=== PATIENT | female | born 1975 | race Caucasian/White ===

== ENCOUNTER 2018-03-18 09:53 | Emergency (ER) | payer OTHER ==
[~2018-03-18] VITALS: Ht 172.7 cm; Wt 156.1 kg
[~2018-03-18 09:53] MED LIST: CLONAZEPAM 0.50.5 M1 PO; EFFEXOR XR75 MG PO; HYDROCODON-ACE1 EAC7 PO; HYZAAR 50-12.51 EACH PO; SPIRONOLACTONE25 M1 PO; VISTARIL 25 MG25 M1 PO; XANAX 0.5 MG0.5 MG PO
[2018-03-18] MEDS ORDERED: KLOR-CON 1010 MEQ PO (10:08)
[2018-03-18 10:14] LABS: URINE BILIRUBIN NEGATIVE (Negative); URINE BLOOD 1+ (Negative); URINE CLARITY CLEAR; URINE COLOR YELLOW; URINE GLUCOSE-RANDOM NEGATIVE (Negative); URINE KETONES 1+ (Negative); URINE LEUKOCYTES-REFLEX 3+ (Negative); URINE NITRITE-REFLEX NEGATIVE (Negative); URINE PROTEIN 1+ (Negative)
[2018-03-18 10:26] LABS: CASTS None Seen /LPF (None Seen); CRYSTALS None Seen /LPF (None Seen); MUCUS 0-3 Light strn/LPF (None Seen); SQUAMOUS 4-10 Moderate /LPF (0-3); URINE RBC 0-2 Rare /HPF (0-2); URINE WBC-REFLEX 6-15 Few /HPF (0-5)
[2018-03-18 10:34] LABS: ABSOLUTE BASOPHILS 0.1 thou/uL (0.0-0.2); ABSOLUTE EOSINOPHILS 0.1 thou/uL (0.0-0.7); ABSOLUTE MONOCYTES 0.4 thou/uL (0.0-1.2); ABSOLUTE NEUTROPHILS 5.9 thou/uL (1.6-8.1); BASOPHILS 0.7 %; EOSINOPHILS 1.2 %; HEMATOCRIT 37.4 % (37.0-47.0); HEMOGLOBIN 12.8 gm/dL (12.0-15.0); LYMPHOCYTES 23.8 %; MCH 32.6 pg (26.0-34.0); MCHC 34.3 g/dL (28.0-37.0); MONOCYTES 4.4 %; MPV 8.9 fl. (7.2-11.1); NUCLEATED RBCS 0 /100WBC; PLATELET COUNT* 168 thou/uL (150-400); POLYS 69.9 %; RBC 3.94 mil/uL (4.20-5.00); RDW-CV 12.8 % (10.5-14.5); WBC 8.4 thou/uL (4.0-11.0)
[2018-03-18 10:37] LABS: CALCIUM 8.1 mg/dL (8.5-10.1); CREATININE 1.2 mg/dL (0.6-1.3)
[2018-03-18 10:41] LABS: ALBUMIN 2.8 g/dL (3.4-5.0); TOTAL BILIRUBIN 0.4 mg/dL (<0.1-1.0); TOTAL PROTEIN 6.9 g/dL (6.4-8.2)
[2018-03-18 10:49] LABS: POTASSIUM 2.8 mmol/L (3.5-5.1)
--- NOTE | 2018-03-18 15:02 | EKG ---
[place] [address] ELECTROCARDIOGRAM REPORT Name: SIMCHRIS Iniguez Room: [facility]#: [id number] Admission: 03/18/18 Attend Phys: Discharge: Date of : 71 Report #: [id number] THIS REPORT FOR: //name// [facility] ED Test Date: 2018-03-18 Test Time: 10:20:39 Pat Name: CHRIS MONTEMAYOR Department: Room: Gender: F Note Specialist: Annmarie COLUNGA : 1975 Requested By: Radha Boland Order Number: [id number] MD: Elijah Ji Measurements Intervals [place] Rate: 102 P: 53 MI: 155 QRS: 5 QRSD: 70 T: -11 QT: 361 QTc: 471 Interpretive Statements Sinus tachycardia Probable left atrial enlargement Low voltage, precordial leads Borderline T abnormalities, diffuse leads Compared to ECG 03/06/2014 07:01:56 Low QRS voltage now present T-wave abnormality now present Sinus rhythm no longer present Atrial premature complex(es) no longer present Electronically Signed On 03-18-2018 15:02:33 CDT by Elijah Ji [email or web address] <ELECTRONICALLY SIGNED> By: Elijah Ji MD, [facility] 03/18/18 1502 1020 1020 Elijah Ji MD, [facility] /EPI
[2018-03-18] MEDS ORDERED: HYDROCODON-ACE1 EAC7 PO (15:49)
[2018-03-18] MEDS ORDERED: CIPROFLOXACIN500 M1 PO (15:49)
[2018-03-18] MEDS ORDERED: ZOFRAN ODT4 MG PO (15:49)
[2018-03-18 16:03] VITALS: BP 111/54
== END 2018-03-18 16:04 | disposition home or self-care (01) ==
LOC: M.ERS 09:53
PROVIDERS: Personal Emergency Response Attendant
DX: E87.6 Hypokalemia (principal); N39.0 Urinary tract infection, site not specified; K76.89 Other specified diseases of liver; R11.2 Nausea with vomiting, unspecified; G43.909 Migraine, unspecified, not intractable, without status migrainosus; I10 Essential (primary) hypertension; F32.9 Major depressive disorder, single episode, unspecified; F41.9 Anxiety disorder, unspecified; F17.210 Nicotine dependence, cigarettes, uncomplicated; Z91.018 Allergy to other foods; Z90.49 Acquired absence of other specified parts of digestive tract

== ENCOUNTER 2018-03-25 14:06 | Inpatient (IN) | payer OTHER ==
[~2018-03-25] VITALS: Ht 177.8 cm; Wt 171.5 kg
--- NOTE | ~2018-03-25 | PROC ---
[address] [address] PROCEDURE REPORT Name: CHRIS MONTEMAYOR Room: [address] IN .R.#: [id number] Admission: 03/25/18 Attend Phys: Rachel Arauz MD Discharge: 04/03/18 Date of : 71 Report #: [id number] THIS REPORT FOR: //name// For GI report, please see the Provation report in Perceptive 7 content. By: 1346Medical Records Staff TEODORA /KELIN
[~2018-03-25 14:06] MED LIST changes: +CIPROFLOXACIN500 M1 PO; +KLOR-CON 1010 MEQ PO; +ZOFRAN ODT4 MG PO
[2018-03-25 14:18] VITALS: BP 116/67
[2018-03-25 14:40] LABS: URINE BILIRUBIN NEGATIVE (Negative); URINE BLOOD NEGATIVE (Negative); URINE CLARITY CLEAR; URINE COLOR YELLOW; URINE GLUCOSE-RANDOM NEGATIVE (Negative); URINE KETONES NEGATIVE (Negative); URINE LEUKOCYTES-REFLEX NEGATIVE (Negative); URINE NITRITE-REFLEX NEGATIVE (Negative); URINE PROTEIN TRACE (Negative); URINE UROBILINOGEN 0.2 E.U./dl (0.2-1.0)
[2018-03-25 14:41] LABS: HEMOGLOBIN 12.9 gm/dL (12.0-15.0); MCH 31.8 pg (26.0-34.0); MCHC 32.9 g/dL (28.0-37.0); MCV 96.5 fL (80.0-100.0); NUCLEATED RBCS 0 /100WBC; PLATELET COUNT* 135 thou/uL (150-400); RBC 4.05 mil/uL (4.20-5.00); RDW-CV 13.9 % (10.5-14.5); WBC 14.3 thou/uL (4.0-11.0)
[2018-03-25 14:46] LABS: CALCIUM 8.9 mg/dL (8.5-10.1); CREATININE 3.5 mg/dL (0.6-1.3)
[2018-03-25 14:50] LABS: ALBUMIN 2.4 g/dL (3.4-5.0); TOTAL BILIRUBIN 0.3 mg/dL (<0.1-1.0); TOTAL PROTEIN 6.5 g/dL (6.4-8.2)
[2018-03-25 15:04] LABS: ABSOLUTE LYMPHOCYTES 3.1 thou/uL (0.8-5.3); ABSOLUTE MONOCYTES 1.4 thou/uL (0.0-1.2); ABSOLUTE NEUTROPHILS 9.7 thou/uL (1.6-8.1)
[2018-03-25 15:05] LABS: PLATELET ESTIMATE ADEQUATE
[2018-03-25 17:19] VITALS: BP 100/49
[2018-03-25 17:20] VITALS: BP 136/57
--- NOTE | 2018-03-25 17:40 | EKG ---
[place] [address] ELECTROCARDIOGRAM REPORT Name: CHRIS MONTEMAYOR Room: [address] ADM IN [facility]#: [id number] Admission: 03/25/18 Attend Phys: Rachel Arauz MD Discharge: Date of : 71 Report #: [id number] THIS REPORT FOR: //name// [facility] ED Test Date: 2018-03-25 Test Time: 14:45:01 Pat Name: CHRIS MONTEMAYOR Department: Room: [facility] Gender: F Physician Chief Of Pathology: KWABENA : 1975 Requested By: Radha Boland Order Number: [id number] MD: Elijah Ji Measurements Intervals [place] Rate: 120 P: 46 FL: 163 QRS: 17 QRSD: 92 T: -43 QT: 278 QTc: 393 Interpretive Statements Sinus tachycardia Probable left atrial enlargement Low voltage, precordial leads Borderline abnrm T, anterolateral leads Compared to ECG 03/18/2018 10:20:39 no change Electronically Signed On 03-25-2018 17:40:43 CDT by Elijah Ji [email or web address] <ELECTRONICALLY SIGNED> By: Elijah Ji MD, FACC 03/25/18 1740 1445 1445 Elijah Ji MD, [facility] /EPI
[2018-03-25 19:35] VITALS: BP 133/68
[2018-03-26] VITALS: BP 81/50
[2018-03-26 02:07] LABS: HEPATITIS B SURFACE AG Negative (Negative)
[2018-03-26 04:00] VITALS: BP 105/50
[2018-03-26 08:00] VITALS: BP 91/60
[2018-03-26 08:16] LABS: HEMATOCRIT 38.5 % (37.0-47.0); HEMOGLOBIN 12.7 gm/dL (12.0-15.0); MCH 31.9 pg (26.0-34.0); MCV 96.9 fL (80.0-100.0); MPV 9.1 fl. (7.2-11.1); RBC 3.97 mil/uL (4.20-5.00); WBC 13.6 thou/uL (4.0-11.0)
[2018-03-26 09:33] LABS: ALBUMIN 2.4 g/dL (3.4-5.0); CALCIUM 8.8 mg/dL (8.5-10.1); POTASSIUM 3.9 mmol/L (3.5-5.1); TOTAL BILIRUBIN 0.3 mg/dL (<0.1-1.0); TOTAL PROTEIN 6.1 g/dL (6.4-8.2)
[2018-03-26 09:41] LABS: CREATININE 2.5 mg/dL (0.6-1.3)
[2018-03-26 10:01] LABS: MAGNESIUM 1.3 mg/dL (1.8-2.4); PHOSPHORUS* 4.8 mg/dL (2.5-4.9)
[2018-03-26 12:09] VITALS: BP 103/35
[2018-03-26 16:05] VITALS: BP 83/33
[2018-03-26 18:52] LABS: CALCIUM 7.7 mg/dL (8.5-10.1); CREATININE 3.5 mg/dL (0.6-1.3); POTASSIUM 3.6 mmol/L (3.5-5.1)
[2018-03-26 19:20] VITALS: BP 97/47
[2018-03-27] VITALS: BP 103/42
[2018-03-27 04:00] VITALS: BP 106/44
[2018-03-27 07:52] LABS: HEMATOCRIT 33.1 % (37.0-47.0); MCH 32.2 pg (26.0-34.0); MCHC 33.4 g/dL (28.0-37.0); MCV 96.6 fL (80.0-100.0); MPV 9.3 fl. (7.2-11.1); RBC 3.43 mil/uL (4.20-5.00); RDW-CV 14.1 % (10.5-14.5); WBC 12.9 thou/uL (4.0-11.0)
[2018-03-27 08:06] LABS: ALBUMIN 1.8 g/dL (3.4-5.0); CALCIUM 7.1 mg/dL (8.5-10.1); POTASSIUM 3.5 mmol/L (3.5-5.1); TOTAL BILIRUBIN 0.3 mg/dL (<0.1-1.0)
[2018-03-27 08:15] VITALS: BP 98/39
[2018-03-27 13:22] LABS: CALCIUM 7.2 mg/dL (8.5-10.1); CREATININE 2.6 mg/dL (0.6-1.3)
[2018-03-27 13:23] LABS: POTASSIUM 5.3 mmol/L (3.5-5.1)
[2018-03-27 15:52] VITALS: BP 97/52
[2018-03-27 19:30] VITALS: BP 96/43
[2018-03-28] VITALS: BP 93/48
[2018-03-28 04:00] VITALS: BP 90/35
[2018-03-28 06:09] LABS: HEMATOCRIT 34.2 % (37.0-47.0); HEMOGLOBIN 11.4 gm/dL (12.0-15.0); MCH 32.4 pg (26.0-34.0); MCHC 33.4 g/dL (28.0-37.0); MCV 97.2 fL (80.0-100.0); MPV 9.9 fl. (7.2-11.1); RBC 3.52 mil/uL (4.20-5.00); RDW-CV 14.3 % (10.5-14.5); WBC 13.9 thou/uL (4.0-11.0)
[2018-03-28 06:12] LABS: CALCIUM 7.2 mg/dL (8.5-10.1); CREATININE 2.3 mg/dL (0.6-1.3)
[2018-03-28 06:21] LABS: POTASSIUM 3.8 mmol/L (3.5-5.1)
[2018-03-28 08:09] VITALS: BP 123/52
--- NOTE | 2018-03-28 11:11 | CON ---
[address] [address] CONSULTATION Name: SIMCHRIS S Room: [address] IN .R.#: [id number] Admission: 03/25/18 Attend Phys: Rachel Arauz MD Discharge: Date of : 71 Report #: [id number] THIS REPORT FOR: //name// CC: Rachel Arauz Physician staff DEV MANJARREZ DATE OF SERVICE: 03/26/2018 CONSULTING PHYSICIAN: Dr. Arauz. REASON FOR CONSULTATION: Acute kidney injury. HISTORY OF PRESENT ILLNESS: A 42-year-old female admitted with diarrhea, which has been going on for 3 weeks, some nausea and vomiting. No regular NSAID use. No new medications except that she started taking diuretics about 3 weeks ago. She has no known history of kidney disease and she has received intravenous fluid resuscitation. She has relatively low blood pressures as well. She currently has no complaints. REVIEW OF SYSTEMS: Constitutional, psych, heme, eyes, ENT, respiratory, cardiac, GI, , and endocrine, all negative except as documented above. PAST MEDICAL HISTORY: Hypertension, anxiety, depression, history of laparoscopic cholecystectomy. SOCIAL HISTORY: Positive for tobacco. FAMILY HISTORY: Not pertinent for 42-year-old female. CURRENT MEDICATIONS: Reviewed. PHYSICAL EXAMINATION: VITAL SIGNS: Blood pressure 103/35, pulse 92, temperature 38.3, respirations 17. GENERAL: No acute distress. EYES: Extraocular movements intact. EARS: Externally normal. CARDIOVASCULAR: Regular rate. LUNGS: No crackles. ABDOMEN: Soft. LYMPHATICS: No substantial peripheral pitting edema. PSYCHIATRIC: Awake, alert. LABORATORY DATA: White cell count 13.6, hemoglobin 12.7, platelets 111. Sodium 134, potassium 3.9, chloride 102, bicarbonate 21, BUN 47, creatinine 2.5, [place] [address] CONSULTATION Name: CHRIS MONTEMAYOR Room: [address]#: [id number] Admission: 03/25/18 Attend Phys: Rachel Arauz MD Discharge: Date of : 71 Report #: [id number] glucose 94, calcium 8.8, phosphorus 4.8, magnesium 1.3. ASSESSMENT: 1. Acute kidney injury. Admission creatinine of 3.5. On 03/18, creatinine was 1.2. This is in the setting of diarrhea with nausea, vomiting, newly started thiazide diuretic about 3 weeks ago, and hypertension while also on an ARB and Aldactone. Urinalysis was okay. CT scan did not reveal any hydronephrosis. 2. Hypomagnesemia in the setting of diarrhea. 3. Hypoalbuminemia with an albumin of 2.4. 4. Left 3 mm and right 4 mm bilateral nonobstructing kidney stones. PLAN: Renal function is improving with hydration. Defer management of diarrhea to primary service. We would avoid diuretics in the future unless absolutely needed. Continue with present management. If creatinine does not return to baseline, the patient can follow up in Outpatient Renal Clinic. Otherwise can follow up with primary physician. With regard to the hypomagnesemia, that has been replaced. Thank you for requesting my opinion in the care and management of this patient. I will sign off. Please call with any questions. <ELECTRONICALLY SIGNED> By: Ruddy Jenkins MD 03/28/18 1111 1654 0314Abianish Jenkins MD /nt
[2018-03-28 12:09] VITALS: BP 126/54
[2018-03-28 20:00] VITALS: BP 100/47
[2018-03-29 07:31] LABS: HEMATOCRIT 34.4 % (37.0-47.0); HEMOGLOBIN 11.6 gm/dL (12.0-15.0); MCHC 33.6 g/dL (28.0-37.0); MCV 95.3 fL (80.0-100.0); MPV 9.9 fl. (7.2-11.1); RBC 3.61 mil/uL (4.20-5.00); RDW-CV 14.3 % (10.5-14.5); WBC 15.6 thou/uL (4.0-11.0)
[2018-03-29 07:36] LABS: CALCIUM 6.5 mg/dL (8.5-10.1); MAGNESIUM 1.6 mg/dL (1.8-2.4); POTASSIUM 3.5 mmol/L (3.5-5.1)
[2018-03-29 07:37] LABS: CREATININE 1.2 mg/dL (0.6-1.3)
[2018-03-29 07:45] VITALS: BP 118/66
[2018-03-29 11:10] LABS: B.burgdorf.IgG Negative (()); B.burgdorf.IgM Positive (())
[2018-03-29 12:21] LABS: URINE BILIRUBIN NEGATIVE (Negative); URINE BLOOD 1+ (Negative); URINE CLARITY CLEAR; URINE COLOR YELLOW; URINE GLUCOSE-RANDOM NEGATIVE (Negative); URINE KETONES NEGATIVE (Negative); URINE LEUKOCYTES-REFLEX NEGATIVE (Negative); URINE NITRITE-REFLEX NEGATIVE (Negative); URINE PROTEIN 1+ (Negative); URINE SPECIFIC GRAVITY 1.015 (1.005-1.030); URINE UROBILINOGEN 0.2 E.U./dl (0.2-1.0)
[2018-03-29 20:20] VITALS: BP 105/62
[2018-03-30 03:53] VITALS: BP 110/58
[2018-03-30 04:20] LABS: HEMATOCRIT 33.6 % (37.0-47.0); HEMOGLOBIN 11.3 gm/dL (12.0-15.0); MCH 32.2 pg (26.0-34.0); MCHC 33.7 g/dL (28.0-37.0); MCV 95.8 fL (80.0-100.0); MPV 9.5 fl. (7.2-11.1); RBC 3.51 mil/uL (4.20-5.00); RDW-CV 14.6 % (10.5-14.5); WBC 18.7 thou/uL (4.0-11.0)
[2018-03-30 04:34] LABS: CALCIUM 6.5 mg/dL (8.5-10.1); MAGNESIUM 1.5 mg/dL (1.8-2.4); POTASSIUM 3.5 mmol/L (3.5-5.1)
[2018-03-30 07:40] VITALS: BP 102/58
[2018-03-30 08:26] LABS: ALBUMIN 1.7 g/dL (3.4-5.0); DIRECT BILIRUBIN 0.1 mg/dL (<0.1-0.3); TOTAL BILIRUBIN 0.3 mg/dL (<0.1-1.0); TOTAL PROTEIN 4.7 g/dL (6.4-8.2)
[2018-03-30 15:05] VITALS: BP 109/65
[2018-03-30 21:30] VITALS: BP 115/61
[2018-03-31 04:24] LABS: HEMATOCRIT 32.8 % (37.0-47.0); HEMOGLOBIN 10.8 gm/dL (12.0-15.0); MCH 31.9 pg (26.0-34.0); MCHC 33.1 g/dL (28.0-37.0); MCV 96.6 fL (80.0-100.0); MPV 9.2 fl. (7.2-11.1); NUCLEATED RBCS 0 /100WBC; PLATELET COUNT* 91 thou/uL (150-400); RBC 3.39 mil/uL (4.20-5.00); RDW-CV 14.8 % (10.5-14.5); WBC 19.7 thou/uL (4.0-11.0)
[2018-03-31 04:44] LABS: ALBUMIN 1.6 g/dL (3.4-5.0); CALCIUM 6.6 mg/dL (8.5-10.1); CREATININE 0.8 mg/dL (0.6-1.3); MAGNESIUM 1.7 mg/dL (1.8-2.4); POTASSIUM 3.9 mmol/L (3.5-5.1); TOTAL BILIRUBIN 0.3 mg/dL (<0.1-1.0); TOTAL PROTEIN 4.7 g/dL (6.4-8.2)
[2018-03-31 08:43] LABS: ABSOLUTE EOSINOPHILS 0.4 thou/uL (0.0-0.7); ABSOLUTE LYMPHOCYTES 7.9 thou/uL (0.8-5.3); ABSOLUTE NEUTROPHILS 10.4 thou/uL (1.6-8.1); ATYPICAL LYMPHS 2 %; PLATELET ESTIMATE DECREASED
[2018-03-31 08:44] LABS: ANISOCYTOSIS 1+; POIKILOCYTOSIS 1+
[2018-03-31 09:55] VITALS: BP 150/98
--- NOTE | 2018-03-31 11:35 | CON ---
[address] [address] CONSULTATION Name: SIMCHRIS S Room: [address] IN .R.#: [id number] Admission: 03/25/18 Attend Phys: Rachel Arauz MD Discharge: Date of : 71 Report #: [id number] THIS REPORT FOR: //name// CC: Rachel Arauz Physician staff DEV MANJARREZ DATE OF SERVICE: 03/30/2018 INFECTIOUS DISEASE CONSULTATION ATTENDING PHYSICIAN: Dr. Arauz. REASON FOR EVALUATION: Leukocytosis. HISTORY OF PRESENT ILLNESS: Chart reviewed, patient examined. This is a 42-year-old with history of hypertension who has been ill for about 3 weeks to the date of admission. Initially, had developed some generalized pain and discomfort, this was somewhat nonspecific; then subsequently developed some fevers, some of which have been high low-grade, nausea and emesis more latter, just prior to admission with some diarrhea. She repeatedly says she never gets sick. She is not aware of any particular exposure history, although she did vacation in [facility]. It was noted that it was quite wet. There were mosquitoes and certainly could have been bit, she takes precautions against ticks. She overall feels somewhat better. She does have a period during her hospitalization where she took a combination of Cipro and metronidazole. There were no cultures that were resulted. She did have mildly elevated LFTs, her acute hepatitis panel was negative. Interestingly, her Lyme IgM Western blot was positive with 2/3 bands present including P23 and P39. It is notable that initial white count was normal, it has increased from 8.4 on admission up to 18.7. She denies significant pulmonary-related complaints. On questioning, she has not had any dietary indiscretion. No animal exposure. Chest x-ray was otherwise unremarkable as was urinalysis. ALLERGIES: None known. MEDICATIONS: Temazepam, venlafaxine, pantoprazole, ondansetron, alprazolam. PAST MEDICAL HISTORY: As noted above, hypertension, history of migraines, anxiety, depression, previous laparoscopic cholecystectomy, appendectomy. SOCIAL HISTORY: She has 4 children. Smokes cigarettes, a pack a day; occasional ethanol. FAMILY HISTORY: [place] [address] CONSULTATION Name: CHRIS MONTEMAYOR Room: [address]#: [id number] Admission: 03/25/18 Attend Phys: Rachel Arauz MD Discharge: Date of : 71 Report #: [id number] REVIEW OF SYSTEMS: As above. PHYSICAL EXAMINATION: GENERAL: She is alert, cooperative. She is sitting up, has mild distress. She appears to be well nourished. She is afebrile. VITAL SIGNS: T-max overnight was 99.9, pulse 106, respirations 19, blood pressure 110/58. SKIN: Warm, dry, no rashes. HEENT: Unremarkable. NECK: Supple. LUNGS: Generally clear to auscultation. HEART: Regular. I do not appreciate any murmur. ABDOMEN: Soft. There are no peritoneal signs. GENITOURINARY AND RECTAL: Deferred. LABORATORY DATA: Most recent hepatic panel that showed uptake in the hepatic transaminases, AST 164, ALT of 116, alkaline phosphatase was borderline elevated at 128. Total protein 4.7, albumin 1.7. CBC: White count of 18.7, H and H 11.3 and 33.6, platelets were low at 77. Electrolytes: Sodium 136, potassium 3.5, chloride 105, bicarbonate is 23, BUN and creatinine 21 and 1.0. Estimated GFR of 60. Chest x-ray, no acute process noted. Urinalysis, 1+ blood, otherwise unremarkable. Lyme IgG Western blot was negative. The IgM Western blot was positive including 2 of 3 bands. IgM P23 antibody and IgM P39 antibody were present. She did have 2 CBCs with differentials both of which were unremarkable. She does have mild monocytosis in the second and lymphocyte count was normal range. Stool and urine cultures are pending. ASSESSMENT: Febrile illness with increasing leukocytosis during hospitalization. Difficult to ascertain area of focal pyogenic infection, does have increasing LFTs. Initial CT abdomen and pelvis was unremarkable on 03/25/2018. We will go ahead and will do an ultrasound of the abdomen. At this point, may well be medicine related; given the positive Lyme, I do think that is what is driving this, but we will dose with doxycycline. Certainly, if she was exposed to tick, could have had more than 1 transmissible disease that may drive the thrombocytopenia; however, interestingly, she had 3 weeks of illness and it has progressed late. We will go and check C. diff assay on the stool at this point given her exposure to the quinolone and the way she presented. We will repeat CBC and see if it trends down. <ELECTRONICALLY SIGNED> By: Mitch Freedman MD 03/31/18 1135 1018 [id number] Freedman MD /nt
[2018-03-31 13:08] LABS: HEMOGLOBIN 10.7 g/dL (11.1-15.9)
[2018-03-31 16:00] VITALS: BP 114/66
[2018-03-31 20:00] VITALS: BP 148/79
[2018-04-01 01:00] VITALS: BP 98/54
[2018-04-01 04:41] LABS: ALBUMIN 1.8 g/dL (3.4-5.0); CALCIUM 6.6 mg/dL (8.5-10.1); CREATININE 0.8 mg/dL (0.6-1.3); DIRECT BILIRUBIN 0.1 mg/dL (<0.1-0.3); POTASSIUM 3.8 mmol/L (3.5-5.1); TOTAL BILIRUBIN 0.4 mg/dL (<0.1-1.0)
[2018-04-01 08:55] VITALS: BP 142/89
[2018-04-01 11:32] LABS: HEMATOCRIT 34.3 % (37.0-47.0); HEMOGLOBIN 11.3 gm/dL (12.0-15.0); MCH 32.1 pg (26.0-34.0); MCV 97.3 fL (80.0-100.0); MPV 9.8 fl. (7.2-11.1); RBC 3.53 mil/uL (4.20-5.00); RDW-CV 15.4 % (10.5-14.5)
[2018-04-01 16:49] VITALS: BP 154/87
[2018-04-01 20:45] VITALS: BP 142/80
[2018-04-01 23:40] VITALS: BP 154/87
[2018-04-02 02:07] LABS: eGFR IF AFRICAN AMERICAN 128 (>59)
[2018-04-02 05:01] LABS: ALBUMIN 1.7 g/dL (3.4-5.0); CALCIUM 6.6 mg/dL (8.5-10.1); CREATININE 0.7 mg/dL (0.6-1.3); HEMATOCRIT 32.5 % (37.0-47.0); HEMOGLOBIN 10.8 gm/dL (12.0-15.0); MAGNESIUM 1.4 mg/dL (1.8-2.4); MCH 32.2 pg (26.0-34.0); MCHC 33.3 g/dL (28.0-37.0); MCV 96.7 fL (80.0-100.0); POTASSIUM 3.6 mmol/L (3.5-5.1); RBC 3.37 mil/uL (4.20-5.00); TOTAL BILIRUBIN 0.4 mg/dL (<0.1-1.0); TOTAL PROTEIN 5.1 g/dL (6.4-8.2); WBC 18.4 thou/uL (4.0-11.0)
[2018-04-02 05:14] LABS: PREALBUMIN 12.1 mg/dL (18.0-35.7)
[2018-04-02 06:05] LABS: PARATHYROID HORMONE 49 pg/mL (15-65)
[2018-04-02 07:06] LABS: CMV IgM Abs >240.0 AU/mL (0.0-29.9)
[2018-04-02 08:00] VITALS: BP 118/63
[2018-04-02 16:00] VITALS: BP 120/54
[2018-04-02 20:24] VITALS: BP 110/72
[2018-04-03 04:14] LABS: HEMATOCRIT 31.7 % (37.0-47.0); HEMOGLOBIN 10.4 gm/dL (12.0-15.0); MCV 97.1 fL (80.0-100.0); MPV 8.9 fl. (7.2-11.1); RBC 3.26 mil/uL (4.20-5.00); RDW-CV 14.7 % (10.5-14.5); WBC 14.4 thou/uL (4.0-11.0)
[2018-04-03 04:43] LABS: ALBUMIN 1.6 g/dL (3.4-5.0); CALCIUM 6.9 mg/dL (8.5-10.1); CREATININE 0.6 mg/dL (0.6-1.3); MAGNESIUM 1.4 mg/dL (1.8-2.4); POTASSIUM 4.5 mmol/L (3.5-5.1); TOTAL BILIRUBIN 0.4 mg/dL (<0.1-1.0); TOTAL PROTEIN 5.1 g/dL (6.4-8.2)
[2018-04-03 07:38] VITALS: BP 154/87
[2018-04-03 08:30] VITALS: BP 146/79
[2018-04-03] MEDS ORDERED: VALCYTE450 MG PO (09:37)
[2018-04-03] MEDS ORDERED: NEXIUM40 MG PO (09:38)
[2018-04-03 10:37] VITALS: BP 154/87
--- NOTE | 2018-04-08 11:09 | PATH ---
[address] [address] PATHOLOGY RPT PROCEDURE Name: SIMESPERANZA S Room: [address] IN .R.#: [id number] Admission: 03/25/18 Date of : 71 Discharge: 04/03/18 Report #: [id number] Path Case #: [id number] [facility] Accession Number: [id number] . 01 Material submitted: . PART A: SMALL BOWEL BIOPSY PART B: ANTRAL BIOPSIES PART C: ESOPHAGEAL BIOPSY AT 35 POSSIBLE BARRETTS PART D: ESOPHAGEAL ULCER AT 28 EVALUATE CMV PART E: RANDOM COLON BIOPSIES FOR CHRONIC DIARRHEA . 01 Clinical history: . A- Chronic diarrhea and CMV infection C- Possible Abbott's D- Evaluate CMV E- Chronic diarrhea . 02 Diagnosis: A. Small bowel biopsy: - Benign small intestinal mucosa with moderate chronic and active inflammation suggestive of cytomegalovirus infection, negative for granulomas and dysplasia. See comment. . B. Antral biopsies: - Moderate nonspecific chronic and active antral gastritis, negative for Helicobacter pylori organisms, granulomas and dysplasia. . C. Esophageal biopsy at 35 cm: - Benign columnar mucosa with mild acute and chronic inflammation compatible with reflux and with abundant goblet cells typical of Abbott's metaplasia. Negative for granulomas, viral inclusions, and dysplasia. . D. Esophageal ulcer at 28 cm: - Mild chronic esophagitis suggestive of cytomegalovirus infection. See comment. . E. Random colon biopsies: - Benign colonic mucosa with mild nonspecific lymphoplasmacytic infiltrate, negative for cryptitis, granulomas, diagnostic viral inclusions and dysplasia. See comment. (SONJA:kelley/pit; 04/07/2018) QMS/04/07/2018 . 02 Comment: Properly controlled CMV stains are performed on the small bowel biopsy (A), "esophageal ulcer at 28 cm" (D) as well as the random colon biopsies (E). Scattered probable positivity is noted within the inflammatory infiltrate in A and D and specimen [place] [address] PATHOLOGY RPT PROCEDURE Name: SIMESPERANZA S Room: [address] IN [facility].#: [id number] Admission: 03/25/18 Date of : 71 Discharge: 04/03/18 Report #: [id number] Path Case #: [id number] . In the random colon biopsies (E),the mildly increased lymphoplasmacytic infiltrate is generally superficially-concentrated,without significant basal lymphoplasmacytosis or crypt distortion to elevate a concern for inflammatory bowel disease and there is no significant intraepithelial lymphocytosis to warrant lymphocytic (microscopic) colitis. (SONJA:pit 04/07/2018) . . Special stain: CMV on specimen A, D and E and H. pylori immuno on B . 02 Electronically signed: . Sean Webster MD, Pathologist NPI- [id number] . 01 Gross description: . A. Received in formalin labeled "Esperanza Sim, small bowel biopsy chronic diarrhea, CMV infection" are 4 soft mcdonald tissue fragments each averaging 0.3 cm which are entirely submitted as A1. . B. Received in formalin labeled "Esperanza Sim, antral biopsies" are 2 soft mcdonald tissue fragments measuring 0.1 and 0.3 cm which are entirely submitted as B1. . C. Received in formalin labeled "Esperanza Sim, esophageal biopsies at 35 cm, possible Abbott's" is a 0.2 cm soft mcdonald tissue fragment which is entirely submitted as C1. . D. Received in formalin labeled "Esperanza Sim, esophageal ulcers at 28 cm evaluate for CMV" are 3 soft translucent tissue fragments, 0.1-0.3 cm which are entirely submitted as D1. . E. Received in formalin labeled "Esperanza Sim, random colon biopsies for diarrhea" are multiple soft mcdonald tissue fragments, 0.5 x 0.4 x 0.3 cm which are entirely submitted as E1. (TSERING; 04/05/2018) JBR/JBR . 02 Pathologist provided ICD-10: K52.9, K29.50, K20.9, B25.9 . 02 CPT . 027545, 923884, 981024, 884824, 327998, V66000 Performed at: 01 [facility] [address], [place] [id number] MD Henrry Plascencia MD Phone: [phone] Performed at: 02 [place] [address] PATHOLOGY RPT PROCEDURE Name: ESPERANZA MONTEMAYOR Room: [address]#: [id number] Admission: 03/25/18 Date of : 71 Discharge: 04/03/18 Report #: [id number] Path Case #: [id number] [address] [place] [id number] MD Sean Webster MD Phone: [phone]
== END 2018-04-03 12:29 | disposition home or self-care (01) | DRG 381 ==
LOC: M.ERS 14:06 → M.ORTHSURG 16:19 → M.2W 16:19 → M.TBA-ER 16:19 → M.2W 17:35 → M.ORTHSURG 03-29 08:38
PROVIDERS: Family Medicine; Internal Medicine; Internal Medicine Gastroenterology; Personal Emergency Response Attendant; Specialist; ADMIT Internal Medicine
PROC: 0DB98ZX Excision of Duodenum, Via Natural or Artificial Opening Endoscopic, Diagnostic (ICD-10-PCS; principal; 2018-04-03)
PROC: 0DJD8ZZ Inspection of Lower Intestinal Tract, Via Natural or Artificial Opening Endoscopic (ICD-10-PCS; principal; 2018-04-03)
PROC: 0DB58ZX Excision of Esophagus, Via Natural or Artificial Opening Endoscopic, Diagnostic (ICD-10-PCS; principal; 2018-04-03)
DX: K22.10 Ulcer of esophagus without bleeding (principal); N17.9 Acute kidney failure, unspecified; R65.10 Systemic inflammatory response syndrome (SIRS) of non-infectious origin without acute organ dysfunction; B25.1 Cytomegaloviral hepatitis; B25.8 Other cytomegaloviral diseases; K52.9 Noninfective gastroenteritis and colitis, unspecified; G43.909 Migraine, unspecified, not intractable, without status migrainosus; I10 Essential (primary) hypertension; F32.9 Major depressive disorder, single episode, unspecified; E83.42 Hypomagnesemia; R09.02 Hypoxemia; K64.9 Unspecified hemorrhoids; K57.30 Diverticulosis of large intestine without perforation or abscess without bleeding; K75.9 Inflammatory liver disease, unspecified; R16.2 Hepatomegaly with splenomegaly, not elsewhere classified; K44.9 Diaphragmatic hernia without obstruction or gangrene; E88.09 Other disorders of plasma-protein metabolism, not elsewhere classified; N20.0 Calculus of kidney; F41.9 Anxiety disorder, unspecified; F17.210 Nicotine dependence, cigarettes, uncomplicated; Z90.49 Acquired absence of other specified parts of digestive tract; Z79.899 Other long term (current) drug therapy; Z91.018 Allergy to other foods

== ENCOUNTER 2018-04-22 09:32 | Inpatient (IN) | payer OTHER ==
[2018-04-22] VITALS (7 sets, daily range): BP systolic 80–111; BP diastolic 43–65
[~2018-04-22] VITALS: Ht 172.7 cm; Wt 66.2 kg
[~2018-04-22 09:32] MED LIST changes: +NEXIUM40 MG PO; +VALCYTE450 MG PO
[2018-04-22] MEDS ORDERED: VALTREX 500 MG500 MG PO (09:45)
[2018-04-22 09:55] LABS: HCO3 22.2 mmol/L (22.0-26.0); PCO2 32.8 mmHg (35.0-45.0); PO2 76.1 mmHg (75.0-100.0); pH 7.449 (7.340-7.450)
[2018-04-22 10:02] LABS: ABSOLUTE BASOPHILS 0.1 thou/uL (0.0-0.2); ABSOLUTE EOSINOPHILS 0.1 thou/uL (0.0-0.7); ABSOLUTE LYMPHOCYTES 4.9 thou/uL (0.8-5.3); ABSOLUTE MONOCYTES 0.9 thou/uL (0.0-1.2); ABSOLUTE NEUTROPHILS 5.2 thou/uL (1.6-8.1); BASOPHILS 0.9 %; EOSINOPHILS 0.8 %; HEMATOCRIT 39.4 % (37.0-47.0); HEMOGLOBIN 12.7 gm/dL (12.0-15.0); LYMPHOCYTES 43.8 %; MCHC 32.2 g/dL (28.0-37.0); MCV 99.6 fL (80.0-100.0); MPV 9.1 fl. (7.2-11.1); NUCLEATED RBCS 0 /100WBC; PLATELET COUNT* 244 thou/uL (150-400); POLYS 46.5 %; RBC 3.96 mil/uL (4.20-5.00); RDW-CV 17.3 % (10.5-14.5); WBC 11.2 thou/uL (4.0-11.0)
[2018-04-22 10:19] LABS: CALCIUM 8.5 mg/dL (8.5-10.1); CREATININE 3.4 mg/dL (0.6-1.3); POTASSIUM 3.6 mmol/L (3.5-5.1)
[2018-04-22 10:31] LABS: ALBUMIN 3.1 g/dL (3.4-5.0); TOTAL BILIRUBIN 0.6 mg/dL (<0.1-1.0)
[2018-04-22 10:32] LABS: APTT 29.3 Seconds (25.0-31.3); INR 1.1; PROTIME 11.7 Seconds (9.20-11.50)
--- NOTE | 2018-04-22 16:30 | EKG ---
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 Repairer: Annmarie BUSH : 1975 Requested By: Radha Boland Order Number: [id number] MD: Oscar Booker Measurements Intervals [place] Rate: 118 P: 61 IN: 148 QRS: 36 QRSD: 146 T: -67 QT: 342 QTc: 480 Interpretive Statements Sinus tachycardia Nonspecific intraventricular conduction delay Borderline abnrm T, anterolateral leads Compared to ECG 03/25/2018 14:45:01 Intraventricular conduction delay now present Electronically Signed On 04-22-2018 16:30:12 CDT by Oscar Booker [email or web address] <ELECTRONICALLY SIGNED> By: Oscar Booker MD, [facility] 04/22/18 1630 0938 0938 Oscar Booker MD, [facility] /EPI
[2018-04-22 23:15] LABS: URINE BILIRUBIN NEGATIVE (Negative); URINE BLOOD NEGATIVE (Negative); URINE CLARITY CLEAR; URINE COLOR YELLOW; URINE GLUCOSE-RANDOM NEGATIVE (Negative); URINE KETONES NEGATIVE (Negative); URINE LEUKOCYTES-REFLEX TRACE (Negative); URINE NITRITE-REFLEX NEGATIVE (Negative); URINE PROTEIN NEGATIVE (Negative); URINE UROBILINOGEN 0.2 E.U./dl (0.2-1.0)
[2018-04-22 23:36] LABS: BACTERIA-REFLEX >30 Many /HPF (None Seen); COARSE GRANULAR CASTS 0-3 Few /LPF (None Seen); FINE GRANULAR CASTS 0-3 Few /LPF (None Seen); HYALINE CASTS 0-3 Few /LPF (None Seen); MUCUS 4-6 Moderate strn/LPF (None Seen); SQUAMOUS 0-3 Few /LPF (0-3); TRANSITIONAL EPITHEL CELL 0-3 Few /LPF (None Seen); URINE RBC 3-10 Few /HPF (0-2); WBC CLUMPS Few (None Seen)
[2018-04-22 23:37] LABS: CRYSTALS None Seen /LPF (None Seen)
[2018-04-23] VITALS (8 sets, daily range): BP systolic 84–149; BP diastolic 46–76
[2018-04-23 03:49] LABS: ABSOLUTE BASOPHILS 0.1 thou/uL (0.0-0.2); ABSOLUTE EOSINOPHILS 0.2 thou/uL (0.0-0.7); ABSOLUTE LYMPHOCYTES 2.6 thou/uL (0.8-5.3); ABSOLUTE MONOCYTES 0.6 thou/uL (0.0-1.2); ABSOLUTE NEUTROPHILS 2.3 thou/uL (1.6-8.1); BASOPHILS 1.1 %; EOSINOPHILS 3.4 %; LYMPHOCYTES 45.9 %; MCH 33.2 pg (26.0-34.0); MCHC 32.9 g/dL (28.0-37.0); MONOCYTES 9.9 %; MPV 8.6 fl. (7.2-11.1); NUCLEATED RBCS 0 /100WBC; PLATELET COUNT* 181 thou/uL (150-400); POLYS 39.7 %; RBC 3.17 mil/uL (4.20-5.00); RDW-CV 17.4 % (10.5-14.5); WBC 5.7 thou/uL (4.0-11.0)
[2018-04-23 03:52] LABS: HEMOGLOBIN 10.5 gm/dL (12.0-15.0)
[2018-04-23 04:07] LABS: ALBUMIN 2.3 g/dL (3.4-5.0); CALCIUM 7.7 mg/dL (8.5-10.1); CREATININE 2.2 mg/dL (0.6-1.3); POTASSIUM 3.5 mmol/L (3.5-5.1); TOTAL BILIRUBIN 0.4 mg/dL (<0.1-1.0); TOTAL PROTEIN 6.5 g/dL (6.4-8.2)
--- NOTE | 2018-04-23 10:35 | 2DMMODE ---
[place] [address] 2 D/M-MODE ECHOCARDIOGRAM Name: CHRIS MONTEMAYOR Room: [address] IN [facility]#: [id number] Admission: 04/22/18 Attend Phys: Omari Salinas Discharge: Date of : 71 Date of Service: 04/23/18 1035 Report #: [id number] THIS REPORT FOR: //name// APPROVED REPORT Study performed: 04/22/2018 17:34:30 EXAM: Comprehensive 2D, Doppler, and color-flow Echocardiogram Patient Location: In-Patient Room #: [facility] BSA: 2.37 HR: 98 bpm Other Information Study Quality: Fair Indications Pulmonary Embolism Elevated BNP 2D Dimensions LVEF(%): 79.76 (>50%) IVSd: 13.28 (7-11mm) LVOT Diam: 20.43 (18-24mm) LVDd: 44.02 mm PWd: 11.48 (7-11mm) Ascending Ao: 28.65 (22-36mm) LVDs: 22.82 (25-40mm) Aortic Root: 29.42 mm Villalpando's LVEF: 79.76 % Volumes Left Atrial Volume (Systole) LA ESV Index: 19.70 mL/m2 Aortic Valve AoV Peak Jonatan.: 1.48 m/s AO Peak Gr.: 8.75 mmHg LVOT Max P.90 mmHg AO Mean Gr.: 5.23 mmHg LVOT Mean P.11 mmHg LVOT Max V: 0.99 m/s AO V2 VTI: 29.70 cm LVOT Mean V: 0.68 m/s DEB (VTI): 2.19 cm2 LVOT V1 VTI: 19.86 cm Mitral Valve E/A Ratio: 1.17 [place] [address] 2 D/M-MODE ECHOCARDIOGRAM Name: CHRIS MONTEMAYOR Room: [address] IN .#: [id number] Admission: 04/22/18 Attend Phys: Omari Salinsa Discharge: Date of : 71 Date of Service: 04/23/18 1035 Report #: [id number] MV Decel. Time: 169.90 ms MV E Max Jonatan.: 0.55 m/s MV PHT: 49.27 ms MVA (PHT): 4.47 cm2 TDI E/Lateral E': 4.23 E/Medial E': 6.88 Medial E' Jonatan.: 0.08 m/s Lateral E' Jonatan.: 0.13 m/s Pulmonary Valve PV Peak Jonatan.: 0.85 m/s PV Peak Gr.: 2.90 mmHg Tricuspid Valve RAP Estimate: 5.00 mmHg TR Peak Gr.: 23.58 mmHg RVSP: 28.58 mmHg PA Pressure: 28.58 mmHg Left Ventricle The left ventricle is normal size. There is normal LV segmental wall motion. There is normal left ventricular wall thickness. Left ventricular systolic function is normal. The left ventricular ejection fraction is within the normal range. LVEF is 55-60%. The left ventricular diastolic function is normal. Right Ventricle Right ventricle is dilated. Right ventricular septal motion is flattened. Atria The left atrium size is normal. The right atrium size is normal. Aortic Valve The aortic valve is normal in structure. No aortic regurgitation is present. There is no aortic valvular stenosis. Mitral Valve The mitral valve is normal in structure. There is no mitral valve regurgitation noted. No evidence of mitral valve stenosis. Tricuspid Valve The tricuspid valve is normal in structure. Mild tricuspid regurgitation[place] [address] 2 D/M-MODE ECHOCARDIOGRAM Name: CHRIS MONTEMAYOR Room: [address]#: [id number] Admission: 04/22/18 Attend Phys: Omari Salinas Discharge: Date of : 71 Date of Service: 04/23/18 1035 Report #: [id number] The pulmonary valve is normal in structure. Trace pulmonic regurgitation. Great Vessels The aortic root is normal in size. IVC is normal in size and collapses with >50% inspiration Pericardium There is no pericardial effusion. <Conclusion> LVEF is 55-60%. There is normal LV segmental wall motion. Right ventricle is dilated. Right ventricular septal motion is flattened. The left atrium size is normal. The right atrium size is normal. There is no aortic valvular stenosis. No aortic regurgitation is present. Mild tricuspid regurgitation. PAP 30-35mmHg <ELECTRONICALLY SIGNED> By: Joselito Leo MD, FACC 04/23/18 1035 1035 1035 Joselito Leo MD, FACC /INF
[2018-04-24 00:24] VITALS: BP 127/64
[2018-04-24 02:12] LABS: HIV-1/HIV-2 ANTIBODY Non Reactive (Non Reactive)
[2018-04-24 04:47] VITALS: BP 117/60
[2018-04-24 08:00] VITALS: BP 99/59
[2018-04-24 08:57] LABS: ALBUMIN 2.6 g/dL (3.4-5.0); CALCIUM 8.1 mg/dL (8.5-10.1); CREATININE 1.1 mg/dL (0.6-1.3); PHOSPHORUS* 4.1 mg/dL (2.5-4.9); POTASSIUM 3.6 mmol/L (3.5-5.1)
--- NOTE | 2018-04-24 09:48 | CON ---
[address] [address] CONSULTATION Name: CHRIS MONTEMAYOR Room: [address] IN .R.#: [id number] Admission: 04/22/18 Attend Phys: Lexi Acevedo Discharge: Date of : 71 Report #: [id number] THIS REPORT FOR: //name// CC: Wei Salinas DATE OF SERVICE: 04/23/2018 INFECTIOUS DISEASES CONSULTATION ATTENDING PHYSICIAN: Omari Salinas DO REASON FOR EVALUATION: Acute CMV infection complicated by either directly due to the infection or perhaps adverse drug effect, refractory nausea and vomiting, was found to have pulmonary emboli as well. HISTORY OF PRESENT ILLNESS: Chart reviewed, patient examined. The patient is a 42-year-old, known to me, was hospitalized in the middle part of March, was diagnosed with acute CMV infection, was treated with valganciclovir. There was a delay in getting the treatment for perhaps a week and a half due to insurance issues. She was started over the course of the last several days and perhaps even since she was discharged, she has had ongoing fatigue. She has developed intractable nausea with emesis. Had lightheadedness. Evaluation in the interim showed actually improvement in her liver function tests. She was admitted, was found to be dehydrated and creatinine climbed to 3.4. With hydration, she is down to 2.2. She is not encephalopathic. Generally feels poorly. She is not maintained on supplemental oxygen at this point. The valganciclovir was discontinued. ALLERGIES: None known. MEDICATIONS: Include rivaroxaban, scopolamine, venlafaxine, ondansetron, alprazolam. PAST MEDICAL HISTORY: As described above, history of hypertension, anxiety, depression, previous laparoscopic cholecystectomy, appendectomy, history of migraines. SOCIAL HISTORY: Former smoker, occasional ethanol, no illicit drug use. FAMILY HISTORY: Noncontributory. REVIEW OF SYSTEMS: As above. PHYSICAL EXAMINATION: GENERAL: She is alert, cooperative. She is not encephalopathic, [place] [address] CONSULTATION Name: CHRIS MONTEMAYOR Hira Room: [address]#: [id number] Admission: 04/22/18 Attend Phys: Lexi Acevedo Discharge: Date of : 71 Report #: [id number] distress. She is lying in a right lateral decubitus position. VITAL SIGNS: Temperature 98.2, pulse 97, respirations 19, blood pressure is 90/55. SKIN: Warm, dry, no rashes. NECK: Supple. LUNGS: Diminished, otherwise clear breath sounds. HEART: Regular. Borderline tachycardic. I do not appreciate any murmur. ABDOMEN: Soft, nontender, nondistended. No peritoneal signs. GENITOURINARY AND RECTAL: Deferred. LABORATORY DATA: Blood cultures are sterile thus far. Most recent electrolytes: Sodium 139, potassium 3.5, chloride 104, bicarbonate is 28, anion gap of 7, BUN and creatinine 28 and 2.2, this is down from 3.4, glucose of 98. AST of 38, ALT of 38. Albumin is 2.3, total protein 6.5. Estimated GFR of 24. CBC: White count 5.7, H and H 10.5 and 32.0 and platelets of 181. Urinalysis did show moderate pyuria, 16-25 white cells, greater than 30 bacteria. Lactic acid initially 2.9, repeat was 0.9. ASSESSMENT: Acute Cytomegalovirus infection, perhaps with complication. At this point, worry about adverse drug effect. We will discontinue the valganciclovir. We will discuss with pathology. We will get a CMV DNA by PCR quantitative. In addition to that, I am not sure I can explain the pulmonary emboli may be simply related to the recent events. We are somewhat concerned about hypercoagulable state. Discussed with Dr. Salinas. We will ask hematology to evaluate with ongoing issues with dizziness. We will get CT of the head to exclude an occult process as well. I discussed with her that we will check an HIV, although suspicion is generally low at this point. Continue supportive measures including hydration. I think the renal dysfunction should improve. Consider reimaging the pelvis as well to exclude potential occult process. <ELECTRONICALLY SIGNED> By: Mitch Freedman MD 04/24/18 0948 1014 0112Jokarla Freedman MD /nt
[2018-04-24 12:00] VITALS: BP 94/47
[2018-04-25] VITALS: BP 90/56
[2018-04-25 04:00] VITALS: BP 101/59
[2018-04-25 08:00] VITALS: BP 154/84
[2018-04-25 09:14] LABS: HEMATOCRIT 32.5 % (37.0-47.0); HEMOGLOBIN 10.6 gm/dL (12.0-15.0); MCH 32.9 pg (26.0-34.0); MCHC 32.6 g/dL (28.0-37.0); MCV 100.9 fL (80.0-100.0); MPV 8.6 fl. (7.2-11.1); RBC 3.23 mil/uL (4.20-5.00); RDW-CV 16.9 % (10.5-14.5); WBC 5.8 thou/uL (4.0-11.0)
[2018-04-25 09:24] LABS: ALBUMIN 2.5 g/dL (3.4-5.0); CALCIUM 8.1 mg/dL (8.5-10.1); POTASSIUM 3.5 mmol/L (3.5-5.1); TOTAL BILIRUBIN 0.4 mg/dL (<0.1-1.0); TOTAL PROTEIN 6.8 g/dL (6.4-8.2)
[2018-04-25 12:00] VITALS: BP 103/68
[2018-04-25 16:00] VITALS: BP 102/65
[2018-04-25 17:07] LABS: HEP B IU/mL HBV DNA not detected IU/mL (())
[2018-04-25 20:10] VITALS: BP 133/78
[2018-04-26] VITALS: BP 96/54
[2018-04-26 04:00] VITALS: BP 96/54
[2018-04-26 08:00] VITALS: BP 89/45
[2018-04-26 08:37] LABS: ALBUMIN 2.4 g/dL (3.4-5.0); CALCIUM 8.1 mg/dL (8.5-10.1); CREATININE 0.9 mg/dL (0.6-1.3); MAGNESIUM 1.2 mg/dL (1.8-2.4); POTASSIUM 3.6 mmol/L (3.5-5.1); TOTAL BILIRUBIN 0.3 mg/dL (<0.1-1.0); TOTAL PROTEIN 6.4 g/dL (6.4-8.2)
[2018-04-26 11:52] VITALS: BP 106/68
[2018-04-26 12:05] LABS: ANA INTERPRETATION Negative (Negative); ANTI-DNA SCREEN 1 IU/mL (0-9); ANTI-RNP 0.2 AI (0.0-0.9)
[2018-04-26 16:03] VITALS: BP 121/67
[2018-04-26 20:43] VITALS: BP 147/81
[2018-04-27] VITALS: BP 132/62
[2018-04-27 04:00] VITALS: BP 110/75
[2018-04-27 09:00] VITALS: BP 123/83
[2018-04-27 12:42] VITALS: BP 131/79
[2018-04-27 16:27] VITALS: BP 181/79
[2018-04-27 20:41] VITALS: BP 105/59
[2018-04-28] VITALS: BP 154/79
[2018-04-28 04:00] VITALS: BP 143/64
[2018-04-28 05:04] LABS: HEMATOCRIT 29.3 % (37.0-47.0); HEMOGLOBIN 9.7 gm/dL (12.0-15.0); MCH 33.3 pg (26.0-34.0); MCHC 33.1 g/dL (28.0-37.0); MCV 100.5 fL (80.0-100.0); MPV 8.6 fl. (7.2-11.1); RBC 2.91 mil/uL (4.20-5.00); RDW-CV 16.7 % (10.5-14.5)
[2018-04-28 05:59] LABS: ALBUMIN 2.4 g/dL (3.4-5.0); CALCIUM 8.3 mg/dL (8.5-10.1); MAGNESIUM 1.3 mg/dL (1.8-2.4); TOTAL BILIRUBIN 0.2 mg/dL (<0.1-1.0); TOTAL PROTEIN 5.9 g/dL (6.4-8.2)
[2018-04-28 09:00] VITALS: BP 100/52
[2018-04-28 12:19] VITALS: BP 132/79
--- NOTE | 2018-04-28 13:49 | CON ---
[address] [address] CONSULTATION Name: CHRIS MONTEMAYOR Room: [address] IN .R.#: [id number] Admission: 04/22/18 Attend Phys: Lexi Acevedo Discharge: Date of : 71 Report #: [id number] THIS REPORT FOR: //name// CC: Wei Salinas CONSULTING PHYSICIAN: Omari Salinas DO. REASON FOR CONSULTATION: Acute kidney injury. HISTORY OF PRESENT ILLNESS: A 42-year-old female admitted with nausea, vomiting, diarrhea and significant weight loss. She was hospitalized here recently and was diagnosed with a CMV infection and was on therapy and following with Dr. Freedman as an outpatient. On admission here, she had an elevated creatinine of 3.4. On 04/03/2018, it was 0.6. She denies any heavy NSAID intake, but does take occasional NSAIDs. She currently has no other complaints. REVIEW OF SYSTEMS: Constitutional, psych, heme, eyes, ENT, respiratory, cardiac, GI, , endocrine, all negative except as documented above. PAST MEDICAL HISTORY: Hypertension; depression; anxiety; history of CMV infection, followed by Infectious Disease. MEDICATIONS: Reviewed. SOCIAL HISTORY: Former smoker. FAMILY HISTORY: Not pertinent in this 42-year-old female. PHYSICAL EXAMINATION: VITAL SIGNS: Blood pressure 90/55, pulse 97, respirations 19, temperature 36.8. GENERAL: No acute distress. EYES: Extraocular movements intact. EARS: Externally normal. CARDIOVASCULAR: Regular rate. LUNGS: No crackles. ABDOMEN: Soft. MUSCULOSKELETAL: Nontender. PSYCHIATRIC: Awake, alert. LABORATORY DATA: White cell count 5.7, hemoglobin 10.5, platelets 181. Sodium 139, potassium 3.5, chloride 104, bicarbonate 28, BUN 28, creatinine 2.2, glucose 98, calcium 7.7, albumin 2.3. ASSESSMENT: 1. Acute kidney injury in the setting of nausea, vomiting, diarrhea. Admission creatinine 3.4, now 3.2. She was also on losartan/[place] [address] CONSULTATION Name: CHRIS MONTEMAYOR Room: [address]#: [id number] Admission: 04/22/18 Attend Phys: Lexi Acevedo Discharge: Date of : 71 Report #: [id number] Aldactone, had low blood pressures. Creatinine on 04/03/2018 was 0.6. 2. Hypotension secondary to volume depletion. 3. Hypoalbuminemia with an albumin of 2.3. 4. Suspected acute bilateral pulmonary embolisms, diagnosed by V/Q scan. 4. History of cytomegalovirus esophagitis. 5. Hypertension. 6. Hepatosplenomegaly. Seen by GI during previous hospital stay. PLAN: Urine culture has been sent. Lower extremity Doppler is negative. She is making urine. Creatinine is improving. Continue IV fluids. Renal ultrasound with Doppler has been ordered. She is on Lovenox, Valtrex and venlafaxine. It should all be renally dosed. However, I do expect her kidney function to continue to improve. Thank you for requesting my opinion in the care and management of this patient. <ELECTRONICALLY SIGNED> By: Ruddy Jenkins MD 04/28/18 1349 [id number] Jenkins MD /nt
[2018-04-28 16:00] VITALS: BP 110/60
[2018-04-28 20:49] VITALS: BP 104/62
[2018-04-29] VITALS: BP 163/78
[2018-04-29 08:00] VITALS: BP 97/55
[2018-04-29 15:58] VITALS: BP 154/68
[2018-04-29 20:00] VITALS: BP 117/64
[2018-04-30] VITALS: BP 114/74
[2018-04-30 04:00] VITALS: BP 121/72
[2018-04-30 08:00] VITALS: BP 133/65
[2018-04-30] MEDS ORDERED: XARELTO15 MG PO (14:23)
[2018-04-30] MEDS ORDERED: VANCOMYCIN125 MG/2.1 PO (14:28)
[2018-04-30 15:41] VITALS: BP 133/65
--- NOTE | 2018-05-13 13:22 | CON ---
[address] [address] CONSULTATION Name: CHRIS MONTEMAYOR Room: [address] IN .R.#: [id number] Admission: 04/22/18 Attend Phys: Lexi Acevedo Discharge: 04/30/18 Date of : 71 Report #: [id number] THIS REPORT FOR: //name// CC: Wei Salinas HISTORY OF PRESENT ILLNESS: This is a pleasant 42-year-old female with past medical history of CMV viremia and CMV gastroenteritis and chronic diarrhea, who is presenting for evaluation. The patient was previously seen by our service in the third week of March when she presented with 4 weeks of abdominal pain, nausea, vomiting, diarrhea and weight loss. EGD and colonoscopy were performed at that time, demonstrated ulcers in the upper GI tract and on biopsy of the ulcers, were positive for CMV viral inclusions. Biopsies from colonoscopy revealed inflammation, but specific CMV inclusions were not seen. At that time, she also tested positive for CMV IgM and IgG antibody in her serum. The patient was placed on valganciclovir for 2 weeks. The patient reports that on this medication, she never really felt better and she continued to have diarrhea and abdominal pain. Over the course of the last month, she has lost another 30-35 pounds and she reports that currently her diarrhea has slowly decreased in volume. The patient reports that she has only about 2 bowel movements a day, but when she has a bowel movement, it can happen at night and this often wakes her up from sleep. PAST MEDICAL HISTORY: History of Abbott's esophagus, CMV infection, renal failure, transaminitis. PAST SURGICAL HISTORY: The patient had surgery for congenital hypertrophic pyloric stenosis, appendectomy, laparoscopic cholecystectomy. SOCIAL HISTORY: The patient denies alcohol or recreational drug use. She quit smoking a year back. REVIEW OF SYSTEMS: A comprehensive 10-point review of systems negative except for what was mentioned in the HPI. PHYSICAL EXAMINATION: VITAL SIGNS: Temperature 37.6, pulse rate 100, respirations 17, blood pressure 103/66. GENERAL: The patient is alert, awake, oriented, appears to be in mild distress. HEENT: Mucous membranes are moist. There is no congestion. LUNGS: Clear to auscultation bilaterally. There is no supraclavicular lymphadenopathy. CARDIOVASCULAR: Rate and rhythm regular; S1, S2 present. ABDOMEN: Soft. There is no distention, there is no tenderness, no organomegaly. Bowel sounds are present. EXTREMITIES: Warm, well perfused. There is no rash. NEUROLOGIC: There are no [place] [address] CONSULTATION Name: SIMCHRIS Hira Room: [address]#: [id number] Admission: 04/22/18 Attend Phys: Lexi Acevedo Discharge: 04/30/18 Date of : 71 Report #: [id number] LABORATORY DATA: Hemoglobin 10.5, hematocrit 32. Sodium 139, potassium 3.5, chloride 105, bicarbonate 28, BUN 28, creatinine 2.2, total bilirubin 0.4, AST 38, ALT 38, alkaline phosphatase 75. IMPRESSION: This is a pleasant 42-year-old female with past medical history of cytomegalovirus viremia and cytomegalovirus gastroenteritis, who presents with persistent symptoms despite taking therapy. 1. Nausea, vomiting. 2. Acute renal failure. 3. Chronic diarrhea. 4. A 30-pound weight loss. 5. Cytomegalovirus gastroenteritis. 6. Abbott's esophagus. The patient appears to have complaints similar to her previous presentation in March, although she has persistent CMV infection. CMV serology has been ordered and I will await the results of that. Dr. Freedman from [place] is following the patient and appreciate his input. I have sent off stool culture and C. diff to rule out other common infections. Further recommendations will be based on how the patient progresses. There is no need for endoscopic intervention at this time. <ELECTRONICALLY SIGNED> By: Darío Cardenas MD 05/13/18 1322 1708 [id number] Cardenas MD /nt
== END 2018-04-30 18:48 | disposition home or self-care (01) | DRG 371 ==
LOC: M.ERS 09:32 → M.TBA-ER 13:43 → M.ICU 15:51 → M.2W 04-23 13:19
PROVIDERS: Internal Medicine; Internal Medicine Nephrology; Personal Emergency Response Attendant; Specialist; ADMIT Internal Medicine
DX: A04.72 Enterocolitis due to Clostridium difficile, not specified as recurrent (principal); N17.0 Acute kidney failure with tubular necrosis; I26.99 Other pulmonary embolism without acute cor pulmonale; D68.59 Other primary thrombophilia; B25.8 Other cytomegaloviral diseases; G43.909 Migraine, unspecified, not intractable, without status migrainosus; I10 Essential (primary) hypertension; F41.9 Anxiety disorder, unspecified; R09.02 Hypoxemia; R16.2 Hepatomegaly with splenomegaly, not elsewhere classified; A08.39 Other viral enteritis; I95.2 Hypotension due to drugs; E88.09 Other disorders of plasma-protein metabolism, not elsewhere classified; E86.0 Dehydration; K22.70 Barrett's esophagus without dysplasia; F32.9 Major depressive disorder, single episode, unspecified; K21.9 Gastro-esophageal reflux disease without esophagitis; Z90.49 Acquired absence of other specified parts of digestive tract; Z79.899 Other long term (current) drug therapy; Z91.018 Allergy to other foods; Z80.3 Family history of malignant neoplasm of breast; Z80.0 Family history of malignant neoplasm of digestive organs; Z80.8 Family history of malignant neoplasm of other organs or systems; Z83.3 Family history of diabetes mellitus; Z82.49 Family history of ischemic heart disease and other diseases of the circulatory system; Z87.891 Personal history of nicotine dependence

== ENCOUNTER 2019-06-25 15:10 | Inpatient (IN) | payer OTHER ==
[~2019-06-25] VITALS: Ht 172.7 cm; Wt 137.4 kg
[~2019-06-25 15:10] MED LIST changes: +VALTREX 500 MG500 MG PO; +VANCOMYCIN125 MG/2.1 PO; +XARELTO15 MG PO
[2019-06-25 15:16] VITALS: BP 121/60
[2019-06-25] MEDS ORDERED: LEXAPRO20 MG PO (15:22)
[2019-06-25 15:32] LABS: URINE BILIRUBIN NEGATIVE (Negative); URINE BLOOD TRACE (Negative); URINE CLARITY CLEAR; URINE COLOR YELLOW; URINE GLUCOSE-RANDOM NEGATIVE (Negative); URINE KETONES NEGATIVE (Negative); URINE LEUKOCYTES-REFLEX 2+ (Negative); URINE NITRITE-REFLEX NEGATIVE (Negative); URINE PROTEIN NEGATIVE (Negative); URINE SPECIFIC GRAVITY 1.015 (1.005-1.030); URINE UROBILINOGEN 0.2 E.U./dl (0.2-1.0)
[2019-06-25 15:41] LABS: MUCUS None Seen strn/LPF (None Seen); SQUAMOUS >10 Many /LPF (0-3)
[2019-06-25 15:43] LABS: BACTERIA-REFLEX 1-9 Few /HPF (None Seen); CASTS None Seen /LPF (None Seen); CRYSTALS None Seen /LPF (None Seen); URINE WBC-REFLEX >25 Many /HPF (0-5)
[2019-06-25 15:44] LABS: URINE RBC 0-2 Rare /HPF (0-2)
[2019-06-25 16:04] LABS: ABSOLUTE BASOPHILS 0.2 thou/uL (0.0-0.2); ABSOLUTE EOSINOPHILS 0.2 thou/uL (0.0-0.7); ABSOLUTE LYMPHOCYTES 4.2 thou/uL (0.8-5.3); ABSOLUTE MONOCYTES 1.1 thou/uL (0.0-1.2); ABSOLUTE NEUTROPHILS 10.2 thou/uL (1.6-8.1); BASOPHILS 1.3 %; EOSINOPHILS 1.2 %; HEMATOCRIT 36.5 % (37.0-47.0); HEMOGLOBIN 12.3 gm/dL (12.0-15.0); LYMPHOCYTES 26.2 %; MCH 30.9 pg (26.0-34.0); MCHC 33.7 g/dL (28.0-37.0); MCV 91.7 fL (80.0-100.0); MONOCYTES 7.1 %; MPV 7.8 fl. (7.2-11.1); NUCLEATED RBCS 0 /100WBC; PLATELET COUNT* 357 thou/uL (150-400); POLYS 64.2 %; RBC 3.98 mil/uL (4.20-5.00); RDW-CV 14.4 % (10.5-14.5); WBC 15.9 thou/uL (4.0-11.0)
[2019-06-25 16:24] LABS: CALCIUM 8.9 mg/dL (8.5-10.1); POTASSIUM 4.5 mmol/L (3.5-5.1)
[2019-06-25 16:28] LABS: TOTAL BILIRUBIN 0.4 mg/dL (<0.1-1.0); TOTAL PROTEIN 7.1 g/dL (6.4-8.2)
[2019-06-25 20:45] VITALS: BP 109/50
[2019-06-25 21:00] VITALS: BP 136/73
[2019-06-26 05:05] LABS: HEMATOCRIT 36.8 % (37.0-47.0); HEMOGLOBIN 12.1 gm/dL (12.0-15.0); MCH 30.7 pg (26.0-34.0); MCHC 32.8 g/dL (28.0-37.0); MCV 93.7 fL (80.0-100.0); MPV 7.4 fl. (7.2-11.1); RBC 3.93 mil/uL (4.20-5.00); RDW-CV 14.4 % (10.5-14.5); WBC 11.6 thou/uL (4.0-11.0)
[2019-06-26 05:15] LABS: ALBUMIN 2.7 g/dL (3.4-5.0); CALCIUM 8.3 mg/dL (8.5-10.1); CREATININE 0.9 mg/dL (0.6-1.3); MAGNESIUM 1.9 mg/dL (1.8-2.4); PHOSPHORUS* 4.4 mg/dL (2.5-4.9); TOTAL BILIRUBIN 0.4 mg/dL (<0.1-1.0); TOTAL PROTEIN 6.5 g/dL (6.4-8.2)
[2019-06-26 07:20] VITALS: BP 132/63
[2019-06-26 07:21] LABS: PROTIME 10.5 Seconds (9.20-11.50)
[2019-06-26 17:15] VITALS: BP 118/64
[2019-06-26 19:50] VITALS: BP 128/55
[2019-06-27] VITALS (16 sets, daily range): BP systolic 94–156; BP diastolic 46–81
[2019-06-27 04:38] LABS: HEMATOCRIT 34.7 % (37.0-47.0); HEMOGLOBIN 11.3 gm/dL (12.0-15.0); MCH 30.6 pg (26.0-34.0); MCHC 32.5 g/dL (28.0-37.0); MCV 94.1 fL (80.0-100.0); MPV 7.5 fl. (7.2-11.1); RBC 3.69 mil/uL (4.20-5.00); RDW-CV 14.6 % (10.5-14.5)
[2019-06-27 04:53] LABS: ALBUMIN 2.7 g/dL (3.4-5.0); CALCIUM 8.4 mg/dL (8.5-10.1); MAGNESIUM 1.9 mg/dL (1.8-2.4); PHOSPHORUS* 3.5 mg/dL (2.5-4.9); POTASSIUM 4.1 mmol/L (3.5-5.1); TOTAL BILIRUBIN 0.4 mg/dL (<0.1-1.0); TOTAL PROTEIN 6.7 g/dL (6.4-8.2)
[2019-06-28 04:30] LABS: HEMATOCRIT 33.4 % (37.0-47.0); HEMOGLOBIN 11.1 gm/dL (12.0-15.0); MCH 31.1 pg (26.0-34.0); MCHC 33.2 g/dL (28.0-37.0); MCV 93.7 fL (80.0-100.0); MPV 7.4 fl. (7.2-11.1); RBC 3.57 mil/uL (4.20-5.00); RDW-CV 14.4 % (10.5-14.5)
[2019-06-28 05:21] LABS: CALCIUM 7.6 mg/dL (8.5-10.1); CREATININE 0.8 mg/dL (0.6-1.3); POTASSIUM 3.8 mmol/L (3.5-5.1)
[2019-06-28 07:03] VITALS: BP 144/78
[2019-06-28 16:00] VITALS: BP 145/70
[2019-06-28 20:06] VITALS: BP 147/66
[2019-06-29 04:45] LABS: HEMATOCRIT 33.1 % (37.0-47.0); HEMOGLOBIN 10.9 gm/dL (12.0-15.0); MCH 31.2 pg (26.0-34.0); MCHC 33.1 g/dL (28.0-37.0); MCV 94.5 fL (80.0-100.0); MPV 7.5 fl. (7.2-11.1); RBC 3.5 mil/uL (4.20-5.00); RDW-CV 14.7 % (10.5-14.5)
[2019-06-29 05:07] LABS: CALCIUM 7.8 mg/dL (8.5-10.1); CREATININE 0.8 mg/dL (0.6-1.3); POTASSIUM 4.2 mmol/L (3.5-5.1)
[2019-06-29 07:55] VITALS: BP 125/62
[2019-06-29 15:50] VITALS: BP 141/84
[2019-06-29 20:00] VITALS: BP 122/68
[2019-06-30 07:55] VITALS: BP 120/75
--- NOTE | 2019-06-30 11:57 | CON ---
[address] [address] CONSULTATION Name: CHRIS MONTEMAYOR Room: [address] IN .R.#: [id number] Admission: 06/25/19 Attend Phys: Lexi Acevedo Discharge: Date of : 71 Report #: [id number] THIS REPORT FOR: //name// CC: Oscar Salinas DATE OF SERVICE: 06/29/2019 INFECTIOUS DISEASE CONSULTATION ATTENDING PHYSICIAN: ____. REASON FOR EVALUATION: Recommendations for antibiotic therapy, likely transition to oral treatment setting of a diverticular abscess with percutaneous drainage. HISTORY OF PRESENT ILLNESS: This is a 44-year-old woman actually known to myself who was hospitalized in 2018, was diagnosed with the acute CMV presented on the with complaints of abdominal pain and left lower quadrant, started about 2 weeks prior. In retrospect, may have had intermittent issues prior to that that resolved and became more intense. Had some nausea with the great temperature elevations as well as chills and sweats at times, was evaluated. Imaging confirmed diverticulitis with likely perforation and abscess. She underwent percutaneous drainage procedure. Cultures in progress. Available information notes gram-negative rods, although gram stain showed gram-positive cocci in pairs and chains as well. Empirically, started on antimicrobials with piperacillin and tazobactam. She is not overtly toxic at this point. Significant pulmonary complaints. She has ongoing left lower quadrant pain and discomfort. She has thus far tolerated up to a full liquid diet with the advancement pending. ALLERGIES: LISTED TO ESPERANZA. CURRENT MEDICATIONS: Include saccharomyces, acetaminophen, citalopram, oxycodone, clonazepam, enoxaparin, Zosyn, famotidine, ondansetron as needed. PAST MEDICAL HISTORY: History of migraines, hypertension, anxiety, depression, disseminated CMV, history of C. diff due to this venous thrombus. SOCIAL HISTORY: Smokes a half a pack a day for 25 years. Occasional ethanol. No illicit drug use. FAMILY HISTORY: Noncontributory. REVIEW OF SYSTEMS: Otherwise, unremarkable 10-point review of systems with [place] [address] CONSULTATION Name: CHRIS MONTEMAYOR Room: [address]#: [id number] Admission: 06/25/19 Attend Phys: Lexi Acevedo Discharge: Date of : 71 Report #: [id number] PHYSICAL EXAMINATION: GENERAL: She is alert, cooperative, appropriate. She is completely lucid, oriented, [id number] distress. She is sitting beside the bed. VITAL SIGNS: Temperature 99.2 with a T-max of 99.9, pulse 62, respirations 16, blood pressure of 141/84. SKIN: Warm, dry, no rashes. HEENT: Normocephalic. Extraocular muscles intact. NECK: Supple. LUNGS: Somewhat diminished, otherwise, clear breath sounds. HEART: Regular. I do not appreciate any murmur. ABDOMEN: Soft. There is some tenderness in left lower quadrant. There are no overt peritoneal signs. She has a drain in place. GENITOURINARY AND RECTAL: Deferred. LABORATORY DATA: Cultures described above, gram-negative rods 4+. Electrolytes: Sodium 139, potassium 4.2, chloride 105, bicarbonate is 27, anion gap of 7, BUN and creatinine 10 and 0.8, glucose of 86. Estimated GFR of 77. CBC: White count of 8.0, H and H 10.9 and 33.1, platelets of 295. Urine culture, low numbers of mixed charley. Prealbumin of 14.3. Blood cultures are sterile thus far. ASSESSMENT AND PLAN: Diverticular abscess post percutaneous drainage. If early results suggest a gram-negative haven, it is not clear whether this is aerobe or anaerobe will continue the piperacillin and tazobactam. Ideally once identified, we will transition to oral antibiotics. Noted tentative plans to maintain the drainage catheter in place upon discharge to be followed up with imaging at some point removing of, discussed with the patient and family. <ELECTRONICALLY SIGNED> By: Mitch Freedman MD 06/30/19 1157 [id number] Freedman MD /nt
[2019-06-30] MEDS ORDERED: AMOX TR-K CLV1 EAC3 PO (13:37)
[2019-06-30] MEDS ORDERED: NORCO 5-325 TA1 EAC1 PO (13:40)
[2019-06-30 13:56] VITALS: BP 120/75
== END 2019-06-30 15:55 | disposition home or self-care (01) | DRG 392 ==
LOC: M.ERS 15:10 → M.TBA-ER 19:52 → M.3W 19:52
PROVIDERS: Nurse Practitioner Family; Surgery; ADMIT Internal Medicine
PROC: 0W9J30Z Drainage of Pelvic Cavity with Drainage Device, Percutaneous Approach (ICD-10-PCS; principal; 2019-06-27)
DX: K57.20 Diverticulitis of large intestine with perforation and abscess without bleeding (principal); G43.909 Migraine, unspecified, not intractable, without status migrainosus; F41.9 Anxiety disorder, unspecified; F32.9 Major depressive disorder, single episode, unspecified; E66.01 Morbid (severe) obesity due to excess calories; F17.210 Nicotine dependence, cigarettes, uncomplicated; Z68.42 Body mass index [BMI] 45.0-49.9, adult; Z90.49 Acquired absence of other specified parts of digestive tract; Z86.711 Personal history of pulmonary embolism; Z91.02 Food additives allergy status; Z82.49 Family history of ischemic heart disease and other diseases of the circulatory system; Z80.3 Family history of malignant neoplasm of breast; Z80.0 Family history of malignant neoplasm of digestive organs

== ENCOUNTER 2019-07-12 07:36 | Inpatient (IN) | payer OTHER ==
[~2019-07-12] VITALS: Ht 172.7 cm; Wt 136.1 kg
[~2019-07-12 07:36] MED LIST changes: +AMOX TR-K CLV1 EAC3 PO; +LEXAPRO20 MG PO; +NORCO 5-325 TA1 EAC1 PO
[2019-07-12 07:41] VITALS: BP 156/103
[2019-07-12] MEDS ORDERED: NORVASC 2.5 MG2.5 M1 PO (07:46)
[2019-07-12] MEDS ORDERED: COZAAR 50 MG TA50 MG PO (07:47)
[2019-07-12] MEDS ORDERED: HYDROCHLOROTHIA25 M2 PO (07:47)
[2019-07-12 08:12] LABS: ABSOLUTE BASOPHILS 0.1 thou/uL (0.0-0.2); ABSOLUTE EOSINOPHILS 0.2 thou/uL (0.0-0.7); ABSOLUTE LYMPHOCYTES 3.6 thou/uL (0.8-5.3); ABSOLUTE MONOCYTES 0.8 thou/uL (0.0-1.2); ABSOLUTE NEUTROPHILS 6.9 thou/uL (1.6-8.1); BASOPHILS 1.1 %; EOSINOPHILS 1.7 %; HEMATOCRIT 38.8 % (37.0-47.0); HEMOGLOBIN 12.9 gm/dL (12.0-15.0); MCH 30.7 pg (26.0-34.0); MCHC 33.4 g/dL (28.0-37.0); MCV 91.9 fL (80.0-100.0); MONOCYTES 6.5 %; NUCLEATED RBCS 0 /100WBC; PLATELET COUNT* 281 thou/uL (150-400); POLYS 59.7 %; RBC 4.22 mil/uL (4.20-5.00); RDW-CV 14.1 % (10.5-14.5); WBC 11.6 thou/uL (4.0-11.0)
[2019-07-12 08:29] LABS: CALCIUM 8.3 mg/dL (8.5-10.1); CREATININE 0.8 mg/dL (0.6-1.3); POTASSIUM 3.8 mmol/L (3.5-5.1)
[2019-07-12 08:33] LABS: ALBUMIN 3.3 g/dL (3.4-5.0); TOTAL BILIRUBIN 0.4 mg/dL (<0.1-1.0); TOTAL PROTEIN 7.5 g/dL (6.4-8.2)
[2019-07-12 08:33] LABS: URINE BILIRUBIN NEGATIVE (Negative); URINE BLOOD NEGATIVE (Negative); URINE CLARITY CLEAR; URINE COLOR YELLOW; URINE GLUCOSE-RANDOM NEGATIVE (Negative); URINE KETONES NEGATIVE (Negative); URINE LEUKOCYTES-REFLEX NEGATIVE (Negative); URINE NITRITE-REFLEX NEGATIVE (Negative); URINE PROTEIN NEGATIVE (Negative); URINE SPECIFIC GRAVITY 1.025 (1.005-1.030); URINE UROBILINOGEN 0.2 E.U./dl (0.2-1.0)
--- NOTE | 2019-07-12 09:16 | NUR ---
BLAKE NOTIFIED UPON PT RETURN FROM CT. PT WAS NOT CONNECTED TO MONITOR SHE WAS NOT PRIOR TO CT
[2019-07-12 10:59] VITALS: BP 156/103
[2019-07-12 11:34] VITALS: BP 152/79
[2019-07-12 15:44] VITALS: BP 114/69
--- NOTE | 2019-07-12 17:07 | NUR ---
pt remained alert and oriented. pt c/o pain, meds given as ordered. fall risk precautions in place. hourly rounding completed. will continue to monitor.
[2019-07-12 20:19] VITALS: BP 137/53
[2019-07-13 04:13] LABS: ABSOLUTE EOSINOPHILS 0.2 thou/uL (0.0-0.7); ABSOLUTE LYMPHOCYTES 3.7 thou/uL (0.8-5.3); ABSOLUTE MONOCYTES 0.8 thou/uL (0.0-1.2); BASOPHILS 0.4 %; EOSINOPHILS 1.9 %; HEMOGLOBIN 12.1 gm/dL (12.0-15.0); MCHC 33.6 g/dL (28.0-37.0); MCV 92.5 fL (80.0-100.0); MONOCYTES 8.3 %; MPV 8.1 fl. (7.2-11.1); NUCLEATED RBCS 0 /100WBC; PLATELET COUNT* 276 thou/uL (150-400); POLYS 51.4 %; RBC 3.89 mil/uL (4.20-5.00); RDW-CV 14.3 % (10.5-14.5); WBC 9.8 thou/uL (4.0-11.0)
[2019-07-13 04:38] LABS: CALCIUM 8.6 mg/dL (8.5-10.1); CREATININE 0.8 mg/dL (0.6-1.3); POTASSIUM 3.7 mmol/L (3.5-5.1)
--- NOTE | 2019-07-13 05:08 | NUR ---
PT REPORTED ABD PAIN 7/10 2X DURING SHIFT GAVE 50 MCG FENTANYL FOR PAIN. SHE CAN HAVE THIS Q4. RECEIVED IV ABX SCHEDULED. THERE WILL BE NO SURGERY INTERVENTION SHE IS TO RECEIVE ABX AND PAIN TO BE CONTROLLED. NO REPORTS OF WORSENING PAIN OR NAUSEA. WILL CONTINUE TO FOLLOW PLAN OF CARE.
[2019-07-13 09:00] VITALS: BP 136/67
--- NOTE | 2019-07-13 16:11 | NUR ---
ASSUMED CARE OF PATIENT AT APPROX 0730. ALERT AND ORIENTED X4. ASSESSMENT COMPLETED AND CHARTED. VS SON ROOM AIR. PAIN AND NAUSEA MANAGED WITH IV FENTANYL AND ZOFRAN. FLUIDS AND ANTIBIOTICS INFUSED ORDERED. PATIENT ADVANCED TO CLEAR LIQUIDS AND TOLERATING WELL BUT NOT EATING ALOT. PATIENT UP AD DORIAN IN THE ROOM. CALL LIGHT IN REACH. HOURLY ROUNDS COMPLETED. WILL CONTINUE WITH PLAN OF CARE.
[2019-07-13 16:21] VITALS: BP 139/75
--- NOTE | 2019-07-13 16:54 | NUR ---
SW met with pt to complete assessment, pt readmitted. Pt lives at home with children and has a supportive mother. Hx of oxygen through [employer]. No dc needs anticipated.
[2019-07-13 20:58] VITALS: BP 119/57
[2019-07-14 04:32] LABS: ABSOLUTE BASOPHILS 0.1 thou/uL (0.0-0.2); ABSOLUTE EOSINOPHILS 0.2 thou/uL (0.0-0.7); ABSOLUTE LYMPHOCYTES 3.8 thou/uL (0.8-5.3); ABSOLUTE MONOCYTES 0.9 thou/uL (0.0-1.2); ABSOLUTE NEUTROPHILS 4.6 thou/uL (1.6-8.1); BASOPHILS 0.6 %; EOSINOPHILS 1.7 %; HEMATOCRIT 32.4 % (37.0-47.0); HEMOGLOBIN 10.7 gm/dL (12.0-15.0); LYMPHOCYTES 39.8 %; MCH 30.9 pg (26.0-34.0); MCHC 33.1 g/dL (28.0-37.0); MCV 93.3 fL (80.0-100.0); MONOCYTES 9.4 %; MPV 8.8 fl. (7.2-11.1); NUCLEATED RBCS 0 /100WBC; PLATELET COUNT* 236 thou/uL (150-400); POLYS 48.5 %; RBC 3.47 mil/uL (4.20-5.00); RDW-CV 14.4 % (10.5-14.5); WBC 9.5 thou/uL (4.0-11.0)
[2019-07-14 04:45] LABS: CREATININE 0.7 mg/dL (0.6-1.3); POTASSIUM 3.4 mmol/L (3.5-5.1)
--- NOTE | 2019-07-14 06:00 | NUR ---
SLEPT THROUGH SHIFT. RECEIVED 2 DOSES OF FENTANYL FOR ABDOMINAL PAIN. STILL UP AD DORIAN. SHE RECEIVED SCHEDULED ABX AND MEDS. TOLERATING CLEAR LIQUIDS NO REPORT OF NAUSEA. PLAN TO ADVANCE DIET AND PAIN CONTROL. WILL CONTINUE TO FOLLOW PLAN OF CARE.
--- NOTE | 2019-07-14 18:05 | NUR ---
PATIENT ALERT AND ORIENTED X 4. VITAL SIGNS STABLE ON ROOM AIR. UP INDEPENDENTLY IN ROOM. IV PATENT AND SALINE LOCKED. PAIN BEING MANAGED WITH IV MEDICATION. DENIES NAUSEA AT THIS TIME. HOURLY ROUNDS MAINTAINED THROUGHOUT THE SHIFT. CALL LIGHT WITHIN REACH. NURSING WILL CONTINUE TO MONITOR.
[2019-07-14 19:50] VITALS: BP 113/53
[2019-07-15 04:03] LABS: HEMATOCRIT 32.8 % (37.0-47.0); HEMOGLOBIN 10.9 gm/dL (12.0-15.0); MCHC 33.1 g/dL (28.0-37.0); MCV 93.6 fL (80.0-100.0); MPV 8.3 fl. (7.2-11.1); RBC 3.5 mil/uL (4.20-5.00); RDW-CV 14.4 % (10.5-14.5); WBC 7.3 thou/uL (4.0-11.0)
[2019-07-15 04:09] LABS: CALCIUM 8.1 mg/dL (8.5-10.1); CREATININE 0.7 mg/dL (0.6-1.3); POTASSIUM 3.5 mmol/L (3.5-5.1)
--- NOTE | 2019-07-15 04:28 | NUR ---
VSS ON RA. MEDS GIVEN ORDERED. PAIN MANAGED WITH FENTANYL. NO C/O NAUSEA OR VOMITING. SLEEPING THROUGH THE NIGHT. IV FLUID RUNNING ORDERED. UP AD DORIAN. WILL CONTINUE TO MONITOR.
[2019-07-15 07:15] VITALS: BP 158/100
[2019-07-15 12:09] VITALS: BP 158/100
--- NOTE | 2019-07-15 16:50 | NUR ---
PT REMAINED ALERT AND ORIENTED. PT RESTING IN ROOM. PAIN MEDS GIVEN ORDERED. FALL RISK PRECAUTIONS IN PLACE. HOURLY ROUNDING COMPLETED. WILL CONTINUE TO MONITOR.
[2019-07-15 17:02] VITALS: BP 146/76
[2019-07-15 22:45] VITALS: BP 127/72
--- NOTE | 2019-07-16 05:09 | NUR ---
PATIENT HAS SLEPT WELL THROUGHOUT THE NIGHT. VSS ON RA. NO C/O PAIN. MEDICATIONS GIVEN ORDERED AND CHARTED. IV IN LEFT HAND-NS @ 100ML/HR. PATIENT INSTRUCTED TO USE CALL LIGHT WHEN NEEDING ASSISTANCE. HOURLY ROUNDS MADE. WILL CONTINUE WITH PLAN OF CARE AND NURSING TO MONITOR.
[2019-07-16 09:00] VITALS: BP 155/95
[2019-07-16] MEDS ORDERED: FLAGYL500 M1 PO (09:24)
[2019-07-16] MEDS ORDERED: PROBIOTIC1 EAC7 PO (09:24)
[2019-07-16] MEDS ORDERED: LEVAQUIN 750 M750 MG PO (09:24)
[2019-07-16 10:52] VITALS: BP 158/100
[2019-07-16 11:05] VITALS: BP 158/100
--- NOTE | 2019-07-16 11:05 | NUR ---
PATIENT DISCHARGED TO HOME. PATIENT ALERT AND ORIENTED THIS SHIFT. DENIES N/V/D. STATES "SOME" PAIN IN LT ABD, RATES 2/10, DENIES NEED FOR PAIN INTERVENTION. PATIENT PLEASANT AND COOPERATIVE W/ ASSESS AND CARES. INDEPENDENT IN RM. DRESSES INDEP. BELONGINGS GATHERED PER PATIENT, LEFT RM W/ PATIENT AND FAMILY MEMBER. DISCHARGE INSTRUCTIONS REVIEWED W/ PATIENT. PATIENT STATES VERBALLY OF UNDERSTANDING. COPY OF INSTRUCTIONS GIVEN TO PATIENT. ESCORTED TO AWAITING VEHICLE PER PEDIS W/ FAMILY MEMBER PRESENT. DENIES OTHER NEEDS AT THIS TIME. ~TJRN
--- NOTE | 2019-07-16 21:42 | CON ---
[address] [address] CONSULTATION Name: CHRIS MONTEMAYOR Room: [address] IN .R.#: [id number] Admission: 07/12/19 Attend Phys: Kemal Vigil MD Discharge: 07/16/19 Date of : 71 Report #: [id number] THIS REPORT FOR: //name// CC: Kemal Vigil FAM unknown PCP AT [facility] DICTATED BY: Leti Thayer [facility] DATE OF SERVICE: 07/13/2019 Please note, at the time of this dictation, the patient was seen and physically examined by myself. REASON FOR CONSULTATION: Recurrent diverticulitis. HISTORY OF PRESENT ILLNESS: This is a 44-year-old female who was seen earlier this month for diverticulitis and she had a colonic abscess that a drain was placed. It was removed prior to discharge. She was sent home on Augmentin and she states that she was doing relatively well. She states she had completed the antibiotics. Her bowels were moving 4-5 times a day and were loose. Then, yesterday out of the clear blue, she developed this left lower quadrant pain that made her nauseous. She states her stooling has been nonbloody when she was admitted. She states when the pain gets severe is when she becomes nauseous and when the pain medicine wears off. ID has been consulted and they switched up her antibiotics to Zosyn IV. Surgery is on board, but no surgical intervention is warranted at this time. The patient did have an EGD and colonoscopy back in 03/2018. Upper EGD findings show nonbleeding esophageal ulcers. They were biopsied and positive for CMV. Because of the mucosal changes, she also had a biopsy for Abbott's esophagus, 4 cm hiatal hernia, otherwise negative. Colonoscopy showed hemorrhoids, diverticulosis of the sigmoid and descending. Biopsies were taken of the entire colon for microscopic colitis, which was negative. The patient also has a history of C. difficile in 04/2018 as well. ALLERGIES: ESPERANZA. MEDICATIONS: From home include Lexapro, Norvasc, Cozaar, hydrochlorothiazide, and clonazepam. PAST MEDICAL HISTORY: Hypertension, history of C. difficile. PAST SURGICAL HISTORY: Appendectomy, cholecystectomy, tonsillectomy, and tubal ligation. FAMILY HISTORY: Significant for breast, cervical[place] [address] CONSULTATION Name: CHRIS MONTEMAYOR Room: [address]#: [id number] Admission: 07/12/19 Attend Phys: Kemal Vigil MD Discharge: 07/16/19 Date of : 71 Report #: [id number] SOCIAL HISTORY: She smokes less than a pack a day. Denies any alcohol or illegal drug use. REVIEW OF SYSTEMS: Twelve-point review of systems is essentially negative except what is mentioned in the HPI. PHYSICAL EXAMINATION: VITAL SIGNS: Temperature 36.6, pulse 82, respirations 18, and blood pressure 136/67. HEART: Regular rate and rhythm. LUNGS: Clear. ABDOMEN: Soft, positive bowel sounds in all 4 quadrants with tenderness noted in the left lower quadrant. LABORATORY DATA: Hemoglobin is 12.1, white count is 9.8, and platelets 276. GFR is 77. IMAGING STUDIES: CT of the abdomen and pelvis showed sigmoid wall thickening with edema and inflammatory changes. There is a small amount of stranding and fluid in this region persisting fairly similar to the previous study on 06/30/2019. No increasing in fluid collections or in the process that was noted. IMPRESSION: 1. Abdominal pain. 2. Recurrent diverticulitis, failing outpatient treatment. 3. History of Clostridium difficile in 04/2018. 4. History of CMV in 2018 as well. PLAN: 1. Clear liquids. 2. ID to manage antibiotics, currently on Zosyn. 3. The patient will likely need a CT of the abdomen and pelvis in about 4 weeks to see if complete resolution of her diverticulitis and abscess has resolved and then further recommendations can be made to schedule her outpatient colonoscopy at that time. Thank you for allowing us to participate in this patient's care. Please do not hesitate to call with any questions in regard to this consult. <ELECTRONICALLY SIGNED> By: Jimmy Paul DO 07/16/19 2142 [id number] Paul DO /nt
--- NOTE | 2019-07-18 07:48 | CON ---
[address] [address] CONSULTATION Name: CHRIS MONTEMAYOR Room: [address] IN M.R.#: [id number] Admission: 07/12/19 Attend Phys: Kemal Vigil MD Discharge: 07/16/19 Date of : 71 Report #: [id number] THIS REPORT FOR: //name// CC: Kemal Vigil [facility] DATE OF SERVICE: 07/15/2019 INFECTIOUS DISEASE CONSULTATION ATTENDING PHYSICIAN: Kemal Vigil MD REASON FOR EVALUATION: Relapsing diverticulitis. HISTORY OF PRESENT ILLNESS: Chart reviewed, patient examined. This is a 44-year-old woman known to myself, having seen her on 06/29 with confirmed diverticular abscess, had undergone percutaneous drainage, had polymicrobial growth including Escherichia coli as well as Bacteroides ovatus. The former was in vitro susceptible to Augmentin, had completed course of therapy, roughly 07/07. She subsequently developed severe left lower quadrant pain on 07/12. Followup imaging suggested ongoing thickening of the sigmoid colon, had been restarted empirically on piperacillin and tazobactam. She has not significantly improved from a pain standpoint. She has been afebrile and hemodynamically been fairly stable as well. She is not lucid. Denies significant pulmonary-related complaints. Laboratory has not been markedly abnormal. White count 7.3. ALLERGIES: None. CURRENT MEDICATIONS: Include p.r.n. analgesics, antiemetics, enoxaparin, Zosyn, losartan, amlodipine, citalopram, clonazepam, pantoprazole. PAST MEDICAL HISTORY: History of migraines, history of disseminated CMV, previous history of C. diff, diverticulitis with abscess. Percutaneous drainage, laparoscopic cholecystectomy, hypertension, anxiety, depression. SOCIAL HISTORY: Smokes half pack a day for 25 years. No ethanol. No illicit drug use. FAMILY HISTORY: Noncontributory. REVIEW OF SYSTEMS: Otherwise unremarkable. PHYSICAL EXAMINATION: GENERAL: She is alert, cooperative. She is sitting up. She is oriented. VITAL SIGNS: Temperature 97.9, pulse 79, respirations 18, [place] [address] CONSULTATION Name: CHRIS MONTEMAYOR Room: [address]#: [id number] Admission: 07/12/19 Attend Phys: Kemal Vigil MD Discharge: 07/16/19 Date of : 71 Report #: [id number] 158/100. SKIN: Warm, dry. HEENT: Normocephalic. Extraocular muscles intact. NECK: Supple. LUNGS: Clear to auscultation bilaterally. HEART: Regular. I do not appreciate a murmur. ABDOMEN: Tender, particularly in left lower quadrant, light palpation and percussion, does not show any overt peritoneal signs. GENITOURINARY AND RECTAL: Deferred. LABORATORY DATA: Electrolytes: Sodium 142, potassium 3.5, chloride 107, bicarbonate is 26, anion gap of 9, BUN and creatinine 12 and 0.7, glucose 103. Estimated GFR of 90. CBC: White count 7.3, H and H 10.9 and 32.8 and platelets of 255. CT abdomen and pelvis done at the time of admission showed sigmoid wall thickening with edema and inflammatory changes, small amount of stranding and fluid in the region persisting consistent with prior study that was done on 07/12. ASSESSMENT: Relapsing diverticulitis. I suspect not an antibiotic failure problem. Whether there is an ongoing leak it is not clear if there was a short interval between the CT when she developed signs and symptoms, might be reasonable to repeat that. We will discuss with the hospitalist to see if there is something that is formed that may require additional drainage. We will continue empiric therapy with Zosyn. This should give us good colonic/fecal type coverage. We will ensure she uses incentive spirometer. At this point, she in all likelihood needs an extended course of antibiotics. <ELECTRONICALLY SIGNED> By: Mitch Freedman MD 07/18/19 0748 [id number] [id number] Freedman MD /nt
== END 2019-07-16 11:05 | disposition home or self-care (01) | DRG 392 ==
LOC: M.ERS 07:36 → M.ORTHSURG 10:14 → M.TBA-ER 10:14 → M.ORTHSURG 11:01
PROVIDERS: Family Medicine; Surgery; ADMIT Internal Medicine
DX: K57.80 Diverticulitis of intestine, part unspecified, with perforation and abscess without bleeding (principal); R65.10 Systemic inflammatory response syndrome (SIRS) of non-infectious origin without acute organ dysfunction; Z68.42 Body mass index [BMI] 45.0-49.9, adult; G43.909 Migraine, unspecified, not intractable, without status migrainosus; I10 Essential (primary) hypertension; F41.9 Anxiety disorder, unspecified; F32.9 Major depressive disorder, single episode, unspecified; E66.9 Obesity, unspecified; Z90.49 Acquired absence of other specified parts of digestive tract; Z80.3 Family history of malignant neoplasm of breast; Z80.0 Family history of malignant neoplasm of digestive organs; Z82.49 Family history of ischemic heart disease and other diseases of the circulatory system; Z83.3 Family history of diabetes mellitus; Z79.899 Other long term (current) drug therapy